=== PATIENT | male | born 1980 | race Caucasian/White ===

== ENCOUNTER 2019-01-22 22:48 | Emergency (ER) | payer OTHER ==
[~2019-01-22] VITALS: Ht 195.6 cm; Wt 172.4 kg
[~2019-01-22 22:48] MED LIST: HYDROCODONE-AP1 EAC6 PO; IBUPROFEN 800800 M1 PO
[2019-01-22 22:55] VITALS: BP 136/85
[2019-01-22] MEDS ORDERED: IBUPROFEN 800800 M1 PO (23:21)
[2019-01-22] MEDS ORDERED: BACTRIM DS TAB1 EACH PO (23:21)
[2019-01-22] MEDS ORDERED: KEFLEX500 M1 PO (23:21)
== END 2019-01-22 23:31 | disposition home or self-care (01) ==
LOC: M.ERS 22:48
DX: L03.031 Cellulitis of right toe (principal)

== ENCOUNTER 2019-05-02 22:28 | Emergency (ER) | payer OTHER ==
[~2019-05-02] VITALS: Ht 195.6 cm; Wt 136.1 kg
--- NOTE | ~2019-05-02 | CON ---
[address] [address] CONSULTATION Name: SHANTEL LINDSAY Room: [facility]#: [id number] Admission: 05/02/19 Attend Phys: Discharge: 05/03/19 Date of : 76 Report #: [id number] THIS REPORT FOR: //name// CC: [facility] physician/PCP Melania Casey DATE OF SERVICE: 05/03/2019 This is Andrei Tee dictating for Dr. Donaldo Holder. CHIEF COMPLAINT: Right shoulder injury. HISTORY OF PRESENT ILLNESS: The patient is a pleasant 38-year-old male who we are asked to see in the Emergency Department regarding his right shoulder. The patient states that he was rolling over in bed when he felt that his right shoulder dislocated. He states that he has had 3 prior dislocations; however, all of which he states that he was able to reduce on his own without need to come to the hospital. However, he states that he was unable to reduce his shoulder today and subsequently presented to [facility] Emergency Department for further evaluation. The patient had 2 prior closed reduction attempts by Emergency Room staff; however, they were deemed to be unsuccessful. The patient states that he does have ongoing pain in the right shoulder at the present time; however, has full range of motion about his wrist and elbow and denies any numbness, tingling, loss of sensation in the right upper extremity. He denies any previous surgeries to the right upper extremity and states that he has not had any followup with an orthopedic surgeon for his right shoulder with his previous dislocations. PAST MEDICAL HISTORY: None. CURRENT MEDICATIONS: None. ALLERGIES: No known drug allergies. FAMILY HISTORY: No pertinent family history. REVIEW OF SYSTEMS: A 13-point review of systems was obtained and negative except for the above-mentioned in HPI. PHYSICAL EXAMINATION: GENERAL: Alert and oriented, in no acute distress. HEENT: Head: Normocephalic, atraumatic. PERRL. EOMI. Trachea is midline. No deviation. Normal appearing nares and ears with moist oral and nasal mucosa. No ulcerations. RESPIRATORY: Symmetrical chest wall expansion. No signs of accessory muscle use. [place] [address] CONSULTATION Name: SHANTEL LINDSAY [place] Room: [facility]#: [id number] Admission: 05/02/19 Attend Phys: Discharge: 05/03/19 Date of : 76 Report #: [id number] CARDIOVASCULAR: Brisk capillary refill less than 2 seconds in the right upper extremity and 2+ pulses to radial and ulnar arteries bilaterally. MUSCULOSKELETAL: Right shoulder demonstrates it is being held in adducted and externally rotated position at the patient's side. He does demonstrate tenderness to palpation over the glenohumeral joint with palpable fullness at the anterior axillary fold that is asymmetric to the contralateral side. He does demonstrate significant pain with any attempted range of motion of the right upper extremity passively. However, he has motor and sensory intact axillary, musculocutaneous, AIN, PIN, and ulnar nerves. Compartments are soft and compressible. No signs of compartment syndrome. No pain with passive stretch of the elbow, wrist, or fingers. No signs of any lacerations. NEUROLOGIC: Cranial nerves 2-12 are intact. PSYCHIATRIC: Appropriate mood and cognition. Cooperative. X-rays, multiple views of the right upper extremity were reviewed demonstrating right shoulder anterior dislocation with evidence of Hill-Sachs lesion and then also do a second line of x-rays. Post-reduction x-rays were reviewed at the time of reduction demonstrating adequate glenohumeral joint alignment on both AP and lateral with internal rotation of the humerus. IMPRESSION: Right closed anterior shoulder dislocation. PLAN: We had a lengthy discussion with the patient about his clinical, physical and radiographic exam. We stated the patient has subsequent right anterior shoulder dislocation and had a further discussion about desire for closed reduction. We stated that he has had 2 prior closed reduction attempts in the Emergency Department. Therefore, we would attempt third reduction; however, if the third reduction remained unsuccessful, then we will subsequently boarded the patient for closed versus open reduction in the operating room. The patient is in full understanding and agreement with this plan. Therefore, the risks, benefits, treatment options, alternatives, and indications were discussed with the patient regarding closed reduction procedure. Risks including but not limited to damage to surrounding neurovascular structures, continued pain, continued instability and iatrogenic fracture. The patient was in full understanding and agrees with this plan and wished to proceed with closed reduction maneuver. Sedation was then provided by the Emergency Room provider and a closed reduction maneuver was performed to the right upper extremity utilizing flexion, abduction and external rotation with a palpable clunk of the shoulder reducing back into the glenohumeral joint. He had adequate range of motion of the shoulder following reduction. However, on external rotation of the shoulder, he did have repeat dislocation whenever he was passed approximately 40 degrees and required subsequent closed reduction maneuvers of flexion, abduction and internal rotation to re-reduce the patient. Once the patient was reduced, he was placed into a sling and then a swathe was applied to keep the patient's arm internally rotated and adducted to his side. Next, radiographs of the right shoulder were taken in [place] [address] CONSULTATION Name: TONJATYSHANTEL Room: [facility]#: [id number] Admission: 05/02/19 Attend Phys: Discharge: 05/03/19 Date of : 76 Report #: [id number] demonstrating adequate reduction of the glenohumeral joint. Therefore, the patient was subsequently allowed to wean from sedation and recover. The patient tolerated the procedure well. Recommend the patient maintain the sling and swathe at all times and follow up with the orthopedic care provider in the next week for further evaluation and discussion of long-term options for treating his unstable right shoulder. All concerning signs and symptoms were discussed for which the patient should call return immediately. By: [id number] Holder DO /jacob
[~2019-05-02 22:28] MED LIST changes: +BACTRIM DS TAB1 EACH PO; +KEFLEX500 M1 PO
[2019-05-02 23:00] LABS: ABSOLUTE EOSINOPHILS 0.1 thou/uL (0.0-0.7); ABSOLUTE LYMPHOCYTES 1.7 thou/uL (0.8-5.3); ABSOLUTE MONOCYTES 0.5 thou/uL (0.0-1.2); BASOPHILS 0.7 %; EOSINOPHILS 2.3 %; HEMATOCRIT 50.1 % (42.0-52.0); HEMOGLOBIN 16.9 gm/dL (14.0-18.0); LYMPHOCYTES 26.3 %; MCH 30.6 pg (26.0-34.0); MCHC 33.6 g/dL (28.0-37.0); MCV 91.1 fL (80.0-100.0); MONOCYTES 7.9 %; MPV 9.3 fl. (7.2-11.1); NUCLEATED RBCS 0 /100WBC; PLATELET COUNT* 181 thou/uL (150-400); POLYS 62.8 %; RDW-CV 13.5 % (10.5-14.5); WBC 6.3 thou/uL (4.0-11.0)
[2019-05-02 23:08] LABS: ANION GAP 5 mmol/L (7-16); BUN 16 mg/dL (7-18); CALCIUM 8.6 mg/dL (8.5-10.1); CHLORIDE 100 mmol/L (98-107); CO2 29 mmol/L (21-32); GLUCOSE 389 mg/dL (70-99); POTASSIUM 4.1 mmol/L (3.5-5.1); SODIUM 134 mmol/L (136-145)
[2019-05-02 23:13] LABS: ALBUMIN 3.7 g/dL (3.4-5.0); ALKALINE PHOSPHATASE 168 U/L (46-116); SGOT < 5 U/L (15-37); SGPT 28 U/L (30-65); TOTAL BILIRUBIN 0.3 mg/dL (<0.1-1.0); TOTAL PROTEIN 7.8 g/dL (6.4-8.2)
[2019-05-03] MEDS ORDERED: METFORMIN HCL500 MG PO (04:29)
[2019-05-03] MEDS ORDERED: HYDROCODON-ACE1 EAC7 PO (04:29)
[2019-05-03] MEDS ORDERED: OTHER MISCELL (05:19)
[2019-05-03 05:49] VITALS: BP 142/99
== END 2019-05-03 05:49 | disposition home or self-care (01) ==
LOC: M.ERS 22:28
PROVIDERS: Personal Emergency Response Attendant
DX: M24.411 Recurrent dislocation, right shoulder (principal); R73.9 Hyperglycemia, unspecified